=== PATIENT | female | born 1935 | race African-American/Black ===

== ENCOUNTER 2017-07-22 12:52 | Day surgery (SDC) | payer MEDICAID ==
[2017-07-21 13:03] VITALS: BMI 38.6
[~2017-07-22 12:52] MED LIST: Esmolol 100 MG/10 ML VIAL ONE; Propofol 200 MG/20 ML VIAL ONE
--- NOTE | 2017-07-22 15:22 | OP ---
DATE OF PROCEDURE: 07/22/2017 SURGEON: Siddharth Rivera M.D. PRINT MANAGER SURGEON: None. PROCEDURE PERFORMED: Esophagogastroduodenoscopy with PEG tube revision. INDICATION: 1. Oropharyngeal dysphagia. 2. PEG tube malfunction. MEDICATIONS: See anesthesia record. FINDINGS: After discussion of the risks, benefits and alternatives of the procedure, informed consen t was obtained and verified. Pre-endoscopic cardiopulmonary examination was satisfactory. DESCRIPTION OF PROCEDURE: Timeout was performed before sedation was achieved. Sedation was achieved with anesthesia assistance in the endoscopy unit. The patient remained in the supine position. A P entax adult upper endoscope was placed into the oropharynx and passed through the cricopharyngeus und er direct visualization. The esophageal mucosa appeared normal. The endoscope was passed into the s tomach. Forward and retroflexed views of the entire gastric mucosa were obtained. The gastric mucos a appeared normal. There is a PEG tube along the anterior wall of the stomach. The endoscope was pa ssed through the pylorus and into the first and second portions of the duodenum, which also appeared normal. The upper endoscope was then withdrawn back into the stomach. At this point, her old PEG tu be was removed with the traction method. We quickly replaced this with a 22-Irish Adriana-Jeevan re placement PEG tube. This slid in through the PEG tract quite easily. The internal balloon bumper wa s insufflated with 20 mL of air. The external bumper was brought to a position at 4 cm, which was fo und to be in good position. The upper endoscope was then completely withdrawn and the patient allowe d to recover. The patient tolerated the procedure well. There were no immediate post-procedure comp lications. IMPRESSION: 1. Successful replacement of PEG tube with new 22-Irish PEG tube with internal balloon bumper infla tawny to 20 mL. External PEG bumper located at 4 cm. 2. Otherwise, normal esophagogastroduodenoscopy. RECOMMENDATIONS: 1. PEG tube can be used for feeds immediately. 2. Follow up in the GI clinic as needed.
== END 2017-07-22 16:45 | disposition home or self-care (01) ==
LOC: SDC 12:52
PROVIDERS: ATTEND Internal Medicine
PROC: 0DH63UZ Insertion of Feeding Device into Stomach, Percutaneous Approach (ICD-10-PCS; principal; 2017-07-22)
DX: K94.23 Gastrostomy malfunction (principal); R13.12 Dysphagia, oropharyngeal phase; I48.91 Unspecified atrial fibrillation; I11.0 Hypertensive heart disease with heart failure; I50.9 Heart failure, unspecified; E11.9 Type 2 diabetes mellitus without complications; F03.90 Unspecified dementia, unspecified severity, without behavioral disturbance, psychotic disturbance, mood disturbance, and anxiety; Z79.01 Long term (current) use of anticoagulants; Z79.899 Other long term (current) drug therapy; Z98.890 Other specified postprocedural states

== ENCOUNTER 2017-07-24 03:45 | Emergency (ER) | payer MEDICARE, MEDICAID | END 2017-07-24 05:30 | disposition home or self-care (01) | LOC: ERS 03:45 | DX: Z43.1 Encounter for attention to gastrostomy (principal); I48.91 Unspecified atrial fibrillation; K21.9 Gastro-esophageal reflux disease without esophagitis; E11.9 Type 2 diabetes mellitus without complications; I11.0 Hypertensive heart disease with heart failure; I50.9 Heart failure, unspecified; F03.90 Unspecified dementia, unspecified severity, without behavioral disturbance, psychotic disturbance, mood disturbance, and anxiety; Z79.899 Other long term (current) drug therapy | CPT/HCPCS: 99284; B4087 ==